=== PATIENT | female | born 2000 | race Caucasian/White ===

== ENCOUNTER 2020-08-06 18:49 | Inpatient (IN) | payer OTHER ==
[2020-08-06] VITALS (8 sets, daily range): BP systolic 110–125; BP diastolic 58–69
[~2020-08-06] VITALS: Ht 172.7 cm; Wt 99.5 kg
--- NOTE | 2020-08-06 18:55 | NUR ---
Arrived to unit via wheelchair from ED. pt c/o contractions. Wt obtained and pt ambulates to room 318. Gowned and urine sample obtained. To bed and oriented to room, call light and surroundings. plan of care reviewed with pt and s.o.
[2020-08-06 19:34] LABS: BILIRUBIN,URINE NEGATIVE (NEGATIVE); COLOR,URINE YELLOW; GLUCOSE, URINE (UA) NEGATIVE (NEGATIVE); KETONES,URINE NEGATIVE (NEGATIVE); LEUKOCYTE ESTERASE ,URINE TRACE (NEGATIVE); NITRITE,URINE NEGATIVE (NEGATIVE); PH,URINE 7.5 (5-9); PROTEIN,URINE NEGATIVE (NEGATIVE)
[2020-08-06 19:39] LABS: CLARITY,URINE SL CLOUDY
[2020-08-06 19:41] LABS: AMORPHOUS SEDIMENT,UR MOD AMOR PHOSPHATE /LPF; BACTERIA,URINE FEW /HPF
[2020-08-06] MEDS ORDERED: D5 LR IV SOLUTION 1,000 ML IV ONE (20:45)
[2020-08-06] MEDS: D5 LR IV SOLUTION 1,000 ML IV SCH (21:02)
[2020-08-06 21:25] LABS: BASOPHILS % (AUTO) 0 % (0-10); EOSINOPHILS # (AUTO) 0.1 10^3/uL (0.0-0.3); EOSINOPHILS % (AUTO) 0 % (0-10); HEMATOCRIT 34 % (35-52); HEMOGLOBIN 11.1 g/dL (11.5-16.0); LYMPHOCYTES # (AUTO) 1.9 10^3/uL (1.0-4.0); LYMPHOCYTES % (AUTO) 14 % (12-44); MEAN CORPUSCULAR HEMOGLOBIN 30 pg (25-34); MEAN CORPUSCULAR HGB CONC 33 g/dL (32-36); MEAN CORPUSCULAR VOLUME 90 fL (80-99); MEAN PLATELET VOLUME 11.9 fL (9.0-12.2); MONOCYTES # (AUTO) 1.2 10^3/uL (0.0-1.0); MONOCYTES % (AUTO) 9 % (0-12); NEUTROPHILS % (AUTO) 76 % (42-75); PLATELET COUNT 205 10^3/uL (130-400); WHITE BLOOD COUNT 13.2 10^3/uL (4.3-11.0)
[2020-08-06] MEDS ORDERED: LACTATED RINGERS 1,000 ML IV ONE (23:45)
[2020-08-07] VITALS (70 sets, daily range): BP systolic 86–127; BP diastolic 44–71
[2020-08-07] MEDS ORDERED: fentaNYL 2 mcg/ml BUPIVA 0.125 100 ML ONE (00:12)
[2020-08-07] MEDS ORDERED: fentaNYL INJECTION 100 MCG/2 ML AMP ONE ×2 (00:35→12:16)
[2020-08-07] MEDS ORDERED: LIDOCAINE PF 2% 5 ML (XYLOCAINE) VIAL ONE ×2 (00:35→12:16)
[2020-08-07] MEDS ORDERED: BUPIVACAINE 0.25% 30 ML (SENSORCAINE) VIAL ONE (00:35)
[2020-08-07] MEDS ORDERED: fentaNYL INJECTION 100 MCG/2 ML AMP INJ ONE (01:15)
[2020-08-07] MEDS ORDERED: NALOXONE 0.4 MG/ML 1 ML (NARCAN) VIAL IV PRN (01:15)
[2020-08-07] MEDS ORDERED: LACTATED RINGERS 1,000 ML IV ONE ×2 (01:15)
[2020-08-07] MEDS ORDERED: ONDANSETRON 4 MG/2 ML (SDV) Z0FRAN IV PRN (01:15)
[2020-08-07] MEDS: EPIDURAL (fentaNYL 2 MCG/ML BUPIVA 0.125%)100 ML BAG EPI PRN ×2 (01:31→08:37)
[2020-08-07] MEDS: D5 LR IV SOLUTION 1,000 ML IV SCH ×3 (04:24→20:45)
--- NOTE | 2020-08-07 07:26 | Anesthesia-Regional Post-Op ---
Regional Patient Condition Mental Status: Alert, Oriented x3 Circulation: Same as Pre-Op Headache: Absent Sensation: Full Recovery Motor Block: Absent Post Op Complications Complications None Follow Up Care/Instructions Patient Instructions None needed. Anesthesia/Patient Condition Patient is doing well, no complaints, stable vital signs, no apparent adverse anesthesia problems. No complications reported per nursing. ROSA BEARD CRNA Aug 07, 2020 07:26
[2020-08-07] MEDS ORDERED: OXYTOCIN PRE-MIX DRIP 500 ML IV ONE (07:44)
--- NOTE | 2020-08-07 08:08 | History & Physical-OB ---
OB - Chief Complaint & HPI Date/Time Date of Admission: Date of Admission: Aug 06, 2020 at 20:44 Date seen by a Provider: Aug 07, 2020 Time Seen by a Provider: 07:35 Chief Complaint/History OB-Reason for Admission/Chief: Onset of Labor Hx : 1 Hx Para: 0 Expected Date of Delivery: Aug 14, 2020 Gestational Age in Weeks: 39 Gestational Age in Days: 0 Admission Nurse Assessment Rev: Yes History of Labs GBS neg Allergies and Home Medications Allergies Coded Allergies: No Known Drug Allergies (Unverified , 08/06/20) Patient Home Medication List Home Medication List Reviewed: Yes OB - History Hx of Present Care: Yes Ultrasounds: Normal mid trimester US Obstetrical Complications: None Medical Complications: None Other Concerns: Late transfer of care in 3rd trimester Patient Past Medical History n/a OB - Admission Exam Physical Exam Vitals: Vital Signs 08/07/20 08/07/20 08/07/20 02:00 04:30 07:00 Temp 36.6 Pulse 79 Resp 18 B/P (MAP) 120/60 (80) Pulse Ox 97 O2 Delivery Room Air HEENT: NCAT Heart: Rhythm Normal Lungs: Clear Abdomen: Gravid Extremities: Normal Reflexes: Normal Cervical Dilatation: 4cm Effacement: 75% Station: -1 Membranes: Intact Heart Rate: 130's Accelerations: Accelerations Present Decelerations: No Decelerations Short Term Variability: Present Anodize Machine Operator Variability: Average (6-25) Contractions on Admission: < 5 Minutes Apart Intensity: Mild Labs Laboratory Tests Test 08/06/20 19:25 08/06/20 21:15 08/06/20 21:20 Range/Units Urine Color YELLOW Urine Clarity SL CLOUDY Urine pH 7.5 5-9 Urine Specific Jay 1.020 1.016-1.022 Urine Protein NEGATIVE NEGATIVE Urine Glucose (UA) NEGATIVE NEGATIVE Urine Ketones NEGATIVE NEGATIVE Urine Nitrite NEGATIVE NEGATIVE Urine Bilirubin NEGATIVE NEGATIVE Urine Urobilinogen 0.2 < = 1.0 MG/DL Urine Leukocyte Esterase TRACE H NEGATIVE Urine RBC (Auto) NEGATIVE NEGATIVE Urine RBC NONE /HPF Urine WBC 2-5 /HPF Urine Squamous Epithelial Cells 2-5 /HPF Urine Crystals PRESENT H /LPF Urine Amorphous Sediment MOD AYDEE PHOSPHATE H /LPF Urine Bacteria FEW H /HPF Urine Casts NONE /LPF Urine Mucus SMALL H /LPF Urine Culture Indicated NO White Blood Count 13.2 H 4.3-11.0 10^3/uL Red Blood Count 3.73 L 3.80-5.11 10^6/uL Hemoglobin 11.1 L 11.5-16.0 g/dL Hematocrit 34 L 35-52 % Mean Corpuscular Volume 90 80-99 fL Mean Corpuscular Hemoglobin 30 25-34 pg Mean Corpuscular Hemoglobin Concent 33 32-36 g/dL Red Cell Distribution Width 12.8 10.0-14.5 % Platelet Count 205 130-400 10^3/uL Mean Platelet Volume 11.9 9.0-12.2 fL Immature Granulocyte % (Auto) 1 % Neutrophils (%) (Auto) 76 H 42-75 % Lymphocytes (%) (Auto) 14 12-44 % Monocytes (%) (Auto) 9 0-12 % Eosinophils (%) (Auto) 0 0-10 % Basophils (%) (Auto) 0 0-10 % Neutrophils # (Auto) 10.0 H 1.8-7.8 10^3/uL Lymphocytes # (Auto) 1.9 1.0-4.0 10^3/uL Monocytes # (Auto) 1.2 H 0.0-1.0 10^3/uL Eosinophils # (Auto) 0.1 0.0-0.3 10^3/uL Basophils # (Auto) 0.0 0.0-0.1 10^3/uL Immature Granulocyte # (Auto) 0.1 0.0-0.1 10^3/uL OB - Assessment/Plan/Diagnosis Assessment Assessment: active labor Admission Dx 19 yo @ 39 weeks Active labor GBS neg Admission Status: Inpatient Order (span 2 midnights) Reason for Inpatient Admission: Active labor at 39 weeks Plan Plan: Expectant Management VESNA ISRAEL DO Aug 07, 2020 08:08
[2020-08-07] MEDS ORDERED: LIDOCAINE/EPI 2% 1:200,00 (XYLOCAINE) 10 ML VIAL ONE (12:56)
[2020-08-07] MEDS ORDERED: BENZOCAINE/MENTHOL (DERMOPLAST) 60 ML CAN TP PRN (13:45)
[2020-08-07] MEDS ORDERED: OXYTOCIN PRE-MIX DRIP 500 ML IV SCH (13:45)
[2020-08-07] MEDS ORDERED: TETANUS,DIPTH,PERTUSS P/F (BOOSTRIX) 0.5 ML VIAL IM ONE (13:45)
[2020-08-07] MEDS ORDERED: DIBUCAINE (NUPERCAINAL) 1% OINT 30 GM TOP PRN (13:45)
[2020-08-07] MEDS ORDERED: MEASLES,MUMPS,RUBELLA 1 EA INJ SQ ONE (13:45)
[2020-08-07] MEDS ORDERED: HYDROcodone/APAP 5 MG/325 MG (LORTAB) TAB PO PRN (13:45)
[2020-08-07] MEDS ORDERED: WITCH HAZEL(TUCKS) 40 EA JAR TOP PRN (13:45)
--- NOTE | 2020-08-07 13:48 | OB Labor & Delivery Record ---
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 Variability: Average (6-10) Short Term Variability: Present Presentation: Vertex Vital Signs VS - Last 72 Hours, by Label 08/06/20 08/06/20 08/06/20 08/06/20 19:20 19:44 20:55 21:30 Temp 36.9 36.9 Pulse 86 85 78 74 Resp 18 18 18 18 B/P (MAP) 125/69 (87) 123/65 (84) 122/65 (84) Pulse Ox 99 O2 Delivery Room Air Room Air Room Air Room Air 08/06/20 08/06/20 08/06/20 08/06/20 22:00 22:30 23:00 23:30 Pulse 77 75 75 83 Resp 18 18 18 18 B/P (MAP) 121/62 (81) 115/60 (78) 117/58 (77) 110/60 (77) O2 Delivery Room Air Room Air Room Air Room Air 08/07/20 08/07/20 08/07/20 08/07/20 00:00 00:25 00:45 00:55 Temp 36.6 Pulse 83 80 77 78 Resp 18 18 18 18 B/P (MAP) 119/59 (79) 116/62 (80) 121/60 (80) 116/59 (78) O2 Delivery Room Air Room Air Room Air Room Air 08/07/20 08/07/20 08/07/20 08/07/20 01:00 01:05 01:10 01:13 Pulse 90 83 89 80 Resp 18 18 18 18 B/P (MAP) 121/64 (83) 116/59 (78) 112/55 (74) 108/56 (73) Pulse Ox 98 98 O2 Delivery Room Air Room Air Room Air Room Air 08/07/20 08/07/20 08/07/20 08/07/20 01:16 01:19 01:22 01:25 Pulse 73 81 80 72 Resp 18 18 18 18 B/P (MAP) 98/52 (67) 101/55 (70) 103/55 (71) 104/58 (73) Pulse Ox 98 98 98 98 O2 Delivery Room Air Room Air Room Air Room Air 08/07/20 08/07/20 08/07/20 08/07/20 01:28 01:31 01:34 01:37 Pulse 81 76 72 73 Resp 18 18 18 18 B/P (MAP) 102/55 (71) 95/50 (65) 91/53 (66) 94/50 (65) Pulse Ox 98 97 97 97 O2 Delivery Room Air Room Air Room Air Room Air 08/07/20 08/07/20 08/07/20 08/07/20 01:40 01:45 01:50 02:00 Pulse 71 68 69 64 Resp 18 18 18 18 B/P (MAP) 89/48 (62) 87/46 (60) 91/47 (62) 91/46 (61) Pulse Ox 97 97 97 97 O2 Delivery Room Air Room Air Room Air Room Air 08/07/20 08/07/20 08/07/20 08/07/20 02:30 02:45 03:00 03:15 Pulse 66 69 65 67 Resp 18 18 18 18 B/P (MAP) 86/46 (59) 88/44 (59) 88/48 (61) 91/49 (63) O2 Delivery Room Air Room Air Room Air Room Air 08/07/20 08/07/20 08/07/20 08/07/20 03:30 03:45 04:00 04:15 Pulse 70 64 76 66 Resp 18 18 18 18 B/P (MAP) 100/55 (70) 102/56 (71) 110/55 (73) 111/55 (73) O2 Delivery Room Air Room Air Room Air Room Air 08/07/20 08/07/20 08/07/20 08/07/20 04:30 04:45 05:00 05:15 Temp 36.6 Pulse 71 67 67 71 Resp 18 18 18 18 B/P (MAP) 108/59 (75) 103/56 (72) 99/57 (71) 104/59 (74) O2 Delivery Room Air Room Air Room Air Room Air 08/07/20 08/07/20 08/07/20 08/07/20 05:30 05:45 06:00 06:15 Pulse 84 68 69 106 Resp 18 18 18 18 B/P (MAP) 109/63 (78) 108/56 (73) 107/57 (74) 116/66 (83) O2 Delivery Room Air Room Air Room Air Room Air 08/07/20 08/07/20 08/07/20 08/07/20 06:30 06:45 07:00 07:15 Temp 36.6 Pulse 75 76 79 75 Resp 18 18 18 18 B/P (MAP) 111/62 (78) 111/56 (74) 120/60 (80) 112/58 (76) Pulse Ox 97 O2 Delivery Room Air Room Air Room Air Room Air 08/07/20 08/07/20 08/07/20 08/07/20 07:30 07:45 08:00 08:15 Pulse 95 71 74 76 Resp 18 18 18 18 B/P (MAP) 118/57 (77) 115/55 (75) 108/58 (75) 112/63 (79) Pulse Ox 97 97 97 97 O2 Delivery Room Air Room Air Room Air Room Air 08/07/20 08/07/20 08/07/20 08/07/20 08:30 08:45 09:00 09:15 Pulse 83 68 67 70 Resp 18 18 18 18 B/P (MAP) 107/59 (75) 108/57 (74) 107/56 (73) 107/57 (74) O2 Delivery Room Air Room Air Room Air Room Air 08/07/20 08/07/20 08/07/20 08/07/20 09:30 09:45 10:00 10:15 Pulse 75 74 74 74 Resp 18 18 18 18 B/P (MAP) 104/58 (73) 107/56 (73) 108/59 (75) 122/71 (88) O2 Delivery Room Air Room Air Room Air Room Air 08/07/20 08/07/20 08/07/20 08/07/20 10:30 10:45 11:00 11:15 Pulse 69 69 71 71 Resp 18 18 18 18 B/P (MAP) 105/51 (69) 105/56 (72) 106/54 (71) 107/58 (74) O2 Delivery Room Air Room Air Room Air Room Air 08/07/20 08/07/20 08/07/20 11:30 11:45 12:00 Pulse 68 74 81 Resp 18 18 18 B/P (MAP) 107/53 (71) 110/59 (76) 123/62 (82) O2 Delivery Room Air Room Air Room Air Rupture of Membranes Spontaneous Ruture of Membrane: No Amniotic Membrane Rupture Time: 0730 Amniotic Membrane Fluid Desc.: Clear Vaginal Bleeding Description: Normal Show Induction/Anesthesia Epidural Cath Placement - Time: 52 Progress/Notes Patient admitted last night in active labor. 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 AROM performed and pitocin augmentation started for dysfunction contraction pattern. She then progressed to complete and + 2 station L&D Stage2 Stage Two Stage II Date: Aug 07, 2020 Monitors and Tracing Monitor Mode: External Heart Rate: 140 Monitor Accelerations: Uniform Snf Variability: Average (6-10) Short Term Variability: Present Position: Right Occiput Anterior Presentation: Vertex Cord Descript/Complications Cord Vessel Description: 3 Vessels Delivery Type Infant Delivery Method: Spontaneous Vaginal Anterior Shoulder: Left Episiotomy/Perineal Laceration Laceraction(s)/Extensions: No Episiotomy Description: Perineal Extension/lac, 2nd degree Degree (describe repair) 2nd degree perineal laceration repaired using 3-0 vicryl suture Condition of Infant Delivery 1 minute Comment: 8 5 minute Comment: 9 Notes Live male infant weight pending Condition of Condition of Infant: Living Exam: No Observed Abnormalities Resuscitation Resuscitation: N/A - Spontaneous Resp L&D Stage3 Stage Three Stage III Date: Aug 07, 2020 Pictocin Pitocin Administration mu/min: 10 Pitocin ml/hr: 10 Pitocin Administration Comment: 30 mu wide open after delivery of placenta Placenta Delivery Placenta Delivery: Spontaneous Delivery Summary Summary Estimated blood loss (mL): 300 Attending at delivery: Vesna Israel DO Condition of Delivery Examined: Cervix Examined, Uterus Explored Post Hemorrhage: No Condition of Mother stable Condition of Infant (s) stable VESNA ISRAEL DO Aug 07, 2020 13:48
[2020-08-07] MEDS ORDERED: CATHETER FLUSH 10 ML SYR IV SCH (14:00)
[2020-08-07] MEDS: IBUPROFEN 600 MG (MOTRIN) TAB PO SCH ×2 (15:20→21:01)
[2020-08-07] MEDS: DOCUSATE SODIUM 100 MG (COLACE) CAP PO SCH (21:01)
[2020-08-08] VITALS: BP 103/55
[2020-08-08 05:00] VITALS: BP 106/53
[2020-08-08] MEDS: IBUPROFEN 600 MG (MOTRIN) TAB PO SCH ×2 (05:04→14:37)
[2020-08-08 06:34] LABS: BASOPHILS % (AUTO) 0 % (0-10); EOSINOPHILS # (AUTO) 0.1 10^3/uL (0.0-0.3); EOSINOPHILS % (AUTO) 0 % (0-10); HEMATOCRIT 32 % (35-52); HEMOGLOBIN 10.5 g/dL (11.5-16.0); LYMPHOCYTES # (AUTO) 2.1 10^3/uL (1.0-4.0); LYMPHOCYTES % (AUTO) 14 % (12-44); MEAN CORPUSCULAR HEMOGLOBIN 30 pg (25-34); MEAN CORPUSCULAR HGB CONC 33 g/dL (32-36); MEAN CORPUSCULAR VOLUME 91 fL (80-99); MEAN PLATELET VOLUME 11.8 fL (9.0-12.2); MONOCYTES # (AUTO) 1.3 10^3/uL (0.0-1.0); MONOCYTES % (AUTO) 9 % (0-12); NEUTROPHILS # (AUTO) 11.7 10^3/uL (1.8-7.8); NEUTROPHILS % (AUTO) 76 % (42-75); PLATELET COUNT 175 10^3/uL (130-400); WHITE BLOOD COUNT 15.2 10^3/uL (4.3-11.0)
[2020-08-08] MEDS ORDERED: PRENATAL VITAMIN 1 EA TAB PO SCH (07:00)
--- NOTE | 2020-08-08 07:29 | Postpartum Progress Note ---
Note Note Day # 1 Subjective: Patient is without complaints. Ambulating, voiding. Tolerating a regular diet without nausea or vomiting. Normal lochia. Pain is well controlled with oral pain medications. Objective: Physical Exam: General - Alert and oriented, no apparent distress Abdomen - Soft, appropriately tender to palpation, non-distended, fundus firm at umbilicus Extremities - no edema, negative Harry's bilaterally Assessment: PPD 1 NVD Plan: Routine care. Encourage breast feeding. Encourage ambulation. Ferrous sulfate supplementation. Plan for discharge today Vitals - Labs Vital Signs - I&O Vital Signs Date Time Temp Pulse Resp B/P (MAP) Pulse Ox O2 Delivery O2 Flow Rate FiO2 08/08/20 05:00 36.1 78 18 106/53 (70) 96 Room Air 08/08/20 00:00 36.3 100 18 103/55 (71) 96 Room Air 08/07/20 21:00 36.0 85 18 100/50 (67) 96 Room Air 08/07/20 14:56 36.9 92 18 107/56 (73) Room Air 08/07/20 14:46 36.9 88 18 116/58 (77) Room Air 08/07/20 14:00 37.0 95 18 119/58 (78) Room Air 08/07/20 13:45 37.2 77 18 116/56 (76) Room Air 08/07/20 13:30 37.4 91 18 117/58 (77) Room Air 08/07/20 13:15 37.5 104 18 122/58 (79) Room Air 08/07/20 13:00 127 18 127/63 (84) Room Air 08/07/20 12:45 83 18 123/66 (85) Room Air 08/07/20 12:30 74 18 123/63 (83) Room Air 08/07/20 12:15 70 18 117/63 (81) Room Air 08/07/20 12:00 81 18 123/62 (82) Room Air 08/07/20 11:45 74 18 110/59 (76) Room Air 08/07/20 11:30 68 18 107/53 (71) Room Air 08/07/20 11:15 71 18 107/58 (74) Room Air 08/07/20 11:00 71 18 106/54 (71) Room Air 08/07/20 10:45 69 18 105/56 (72) Room Air 08/07/20 10:30 69 18 105/51 (69) Room Air 08/07/20 10:15 74 18 122/71 (88) Room Air 08/07/20 10:00 74 18 108/59 (75) Room Air 08/07/20 09:45 74 18 107/56 (73) Room Air 08/07/20 09:30 75 18 104/58 (73) Room Air 08/07/20 09:15 70 18 107/57 (74) Room Air 08/07/20 09:00 67 18 107/56 (73) Room Air 08/07/20 08:45 68 18 108/57 (74) Room Air 08/07/20 08:30 83 18 107/59 (75) Room Air 08/07/20 08:15 76 18 112/63 (79) 97 Room Air 08/07/20 08:00 74 18 108/58 (75) 97 Room Air 08/07/20 07:45 71 18 115/55 (75) 97 Room Air 08/07/20 07:30 95 18 118/57 (77) 97 Room Air I & O 08/08/20 06:59 Intake Total 1075 ml Balance 1075 ml Labs Laboratory Tests 08/08/20 06:30: White Blood Count 15.2H, Red Blood Count 3.45L, Hemoglobin 10.5L, Hematocrit 32L , Mean Corpuscular Volume 91, Mean Corpuscular Hemoglobin 30, Mean Corpuscular Hemoglobin Concent 33, Red Cell Distribution Width 13.0, Platelet Count 175, Mean Platelet Volume 11.8, Immature Granulocyte % (Auto) 1, Neutrophils (%) (Auto) 76H, Lymphocytes (%) (Auto) 14, Monocytes (%) (Auto) 9, Eosinophils (%) (Auto) 0, Basophils (%) (Auto) 0, Neutrophils # (Auto) 11.7H, Lymphocytes # (Auto) 2.1, Monocytes # (Auto) 1.3H, Eosinophils # (Auto) 0.1, Basophils # (Auto) 0.0, Immature Granulocyte # (Auto) 0.1 VESNA ISRAEL DO Aug 08, 2020 07:29
[2020-08-08] MEDS ORDERED: DIBU30OI TOP (07:32)
[2020-08-08] MEDS ORDERED: FERR325T18 PO (07:32)
[2020-08-08] MEDS ORDERED: ACHD5005 PO (07:32)
[2020-08-08] MEDS ORDERED: BENZ78AE5 TP (07:32)
[2020-08-08] MEDS ORDERED: IBUP-844 PO (07:32)
[2020-08-08] MEDS ORDERED: DCS100C PO (07:32)
--- NOTE | 2020-08-08 07:33 | Discharge Inst-Women's Service ---
Discharge Inst-Women's Serv Depart Medication/Instructions New, Converted or Re-Newed RX: RX on Chart Final Diagnosis PPD 1 NVD Problems Reviewed?: Yes Consults/Follow Up Additional Follow Up: Yes Orders/Referrals Dr. Israel in 6 weeks Activity Activity: Activity as Tolerated Driving Instructions: No Driving for 1 Week NO SMOKING: NO SMOKING Nothing Inside Vagina: No Douching, No [place], No Tampons Diet Discharge Diet: No Restrictions Symptoms to Report to : Bleeding Excessive, Pain Increased, Fever Over 101 Degrees F, Vaginal Bleeding Increase, Questions/Concerns For Any Problems or Questions: Contact Your Physician VESNA ISRAEL DO Aug 08, 2020 07:33
[2020-08-08 07:54] VITALS: BP 95/55
[2020-08-08] MEDS ORDERED: FERROUS SULF 325 MG (IRON) TAB PO SCH (08:00)
[2020-08-08] MEDS: DOCUSATE SODIUM 100 MG (COLACE) CAP PO SCH (08:43)
[2020-08-08 14:38] VITALS: BP 105/55
[2020-08-08 17:30] VITALS: BP 105/55
--- NOTE | 2020-08-08 17:33 | NUR ---
MELVINA PATEL demonstrates understanding of discharge instructions and accurately returns instructions upon questioning. Copy of Post-Discharge Instructions and Medication Discharge Instructions given to patient. MELVINA PATEL is able to manage continuing needs after discharge. Patients belongings returned to patient. Skin dry and intact; no breakdown noted. Patient discharged from 3310-1 on 08/08/20 at 1730 MELVINA PATEL to boarder in room 310 baby not discharged.no concerns noted.
== END 2020-08-08 17:30 | disposition home or self-care (01) | DRG 807 ==
LOC: WSo 18:49 → LDRP 18:51 → WSo 20:43 → LDRP 20:44
PROVIDERS: ADMIT Obstetrics & Gynecology; ATTEND Obstetrics & Gynecology
PROC: 10E0XZZ Delivery of Products of Conception, External Approach (ICD-10-PCS; principal; 2020-08-07)
PROC: 0KQM0ZZ Repair Perineum Muscle, Open Approach (ICD-10-PCS; 2020-08-07)
DX: O70.1 Second degree perineal laceration during delivery (principal); Z37.0 Single live birth; Z3A.39 39 weeks gestation of pregnancy; Z20.822 Contact with and (suspected) exposure to COVID-19
CPT/HCPCS: 36415; 81000; 85025; 86850; 86900; 86901; 87635; 99212